=== PATIENT | male | born 2000 | race Hispanic/Latino ===

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

== ENCOUNTER 2021-05-31 16:19 | Emergency (ER) | payer SELFPAY ==
[2021-05-31] MEDS ORDERED: Metoclopramide HCl 10 MG/2 ML VIAL ONE (18:15)
[2021-05-31] MEDS ORDERED: Ketorolac Tromethamine 30 MG/ML VIAL ONE (18:15)
[2021-05-31] MEDS ORDERED: Acetaminophen 500 MG TAB ONE (18:15)
[2021-05-31] MEDS ORDERED: diphenhydrAMINE 50 MG/ML VIAL ONE (18:15)
== END 2021-05-31 19:32 | disposition home or self-care (01) ==
LOC: ERS 16:19
DX: G43.909 Migraine, unspecified, not intractable, without status migrainosus (principal)
CPT/HCPCS: 96365; 96375; J1200; J1885; J2765

== ENCOUNTER 2021-06-05 18:10 | Emergency (ER) | payer SELFPAY ==
[2021-06-05] MEDS ORDERED: Acetaminophen 500 MG TAB ONE (18:40)
[2021-06-05] MEDS ORDERED: Metoclopramide HCl 10 MG/2 ML VIAL ONE (18:40)
[2021-06-05] MEDS ORDERED: diphenhydrAMINE 50 MG/ML VIAL ONE (18:40)
== END 2021-06-05 19:52 | disposition home or self-care (01) ==
LOC: ERS 18:10
DX: G43.909 Migraine, unspecified, not intractable, without status migrainosus (principal)
CPT/HCPCS: 96365; 96375; J1200; J2765